=== PATIENT | male | born 2000 | race Caucasian/White ===

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

== ENCOUNTER 2018-01-19 14:11 | Outpatient (CLI) | payer BC | END 2018-01-19 14:12 | LOC: POD 14:11 | PROVIDERS: ATTEND Podiatrist | DX: M77.31 Calcaneal spur, right foot (principal); M77.32 Calcaneal spur, left foot | CPT/HCPCS: 99213 ==

== ENCOUNTER 2018-06-03 16:35 | Emergency (ER) | payer BC ==
--- NOTE | 2018-06-03 16:37 | ED Physician Documentation ---
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 Pt has pain in his lateral R foot as well as ankle. No other injury.) - ROS CONST: no problems EYES/ENT: none CVS/RESP: none GI/: none MS/SKIN/LYMPH: other (R ankle/foot injury) - PAST HX Past History: other (anxiety, bipolar d/o.) Allergies/Adverse Reactions: Allergies Allergy/AdvReac Type Severity Reaction Status Date / Time No Known Allergies Allergy Verified 06/03/18 16:47 Home Medications: Ambulatory Orders Medication Instructions Recorded Carbamazepine [Carbamazepine ER] 100 mg D 06/03/18 LORazepam [Ativan] 1 mg D 06/03/18 Lisdexamfetamine Dimesylate 50 mg D 06/03/18 [Vyvanse] - SOCIAL HX Smoking History: non-smoker - FAMILY HX Family History: No - VITAL SIGNS Vital Signs: Vital Signs Temp Pulse Resp BP Pulse Ox 140/70 10/30/17 15:39 - REVIEWED ASSESSMENTS Nursing Assessment Reviewed: Yes Vitals Reviewed: Yes Progress - Progress Progress: X-ray R foot: normal X-ray R ankle: normal Air Splint Crutches as needed Ibuprofen 200 mg. Take 3 every 8 hrs with food. General Adult Physical Exam - PHYSICAL EXAM GENERAL APPEARANCE: moderate distress NECK: normal inspection, supple RESPIRATORY: no resp distress, chest non-tender, breath sounds normal CVS: reg rate & rhythm, heart sounds normal BACK: normal inspection SKIN: warm/dry, normal color EXTREMITIES: other (R ankle tenderness and R foot tenderness laterally, min swelling) NEURO: oriented X3, motor nml, sensation nml Discharge Clincal Impression: Right ankle sprain Qualifiers: Encounter type: initial encounter Involved ligament of ankle: unspecified ligament Qualified Code(s): S93.401A - Sprain of unspecified ligament of right ankle, initial encounter Referrals: Bj Garcia MD [Primary Care Provider] - Condition: Good Disposition: 01 HOME, SELF-CARE Decision to Admit: NO Decision Time: 17:42
[2018-06-03 16:47] VITALS: BP 117/67
--- NOTE | 2018-06-03 17:37 | Diagnostic Imaging Report ---
LORI ARBOLEDA [facility] [address] [facility] [address] [address] Report Submission Date: Jun 03, 2018 5:35:50 PM CDT Patient Study Name: SHO JOHNSON Date: Jun 03, 2018 4:55:23 PM CDT Modality Type: DX Gender: M Description: LOWER EXTREMITY : 98 Institution: [facility] Physician: LORI ARBOLEDA Right ankle, 3 views History: Injury, pain Findings: The osseous, joints and soft tissue structures are normal. Impression: Normal. Electronically signed on Jun 03, 2018 5:35:50 PM CDT by: Jeyson LANE
--- NOTE | 2018-06-03 17:38 | Diagnostic Imaging Report ---
LORI ARBOLEDA [facility] [address] [facility] [address] [address] Report Submission Date: Jun 03, 2018 5:36:28 PM CDT Patient Study Name: SHO JOHNSON Date: Jun 03, 2018 4:58:36 PM CDT Modality Type: DX Gender: M Description: LOWER EXTREMITY : 98 Institution: [facility] Physician: LORI ARBOLEDA Right foot, 3 views History: Injury, pain Findings: The osseous, joint and soft tissue structures are normal. Impression: Normal. Electronically signed on Jun 03, 2018 5:36:28 PM CDT by: Jeyson LANE
== END 2018-06-03 17:46 | disposition home or self-care (01) ==
LOC: ED 16:35
DX: S93.401A Sprain of unspecified ligament of right ankle, initial encounter (principal); X58.XXXA Exposure to other specified factors, initial encounter; Y92.9 Unspecified place or not applicable; Y93.9 Activity, unspecified; Y99.9 Unspecified external cause status
CPT/HCPCS: 73610; 73630

== ENCOUNTER 2018-09-20 12:06 | Outpatient (CLI) | payer BC ==
[2018-09-20 13:43] LABS: eGFR (Non-African) > 60
[2018-09-20 23:11] LABS: T3-UPTAKE 34.6 % (25.4-41.2)
== END 2018-09-20 15:30 ==
LOC: LAB 12:06
PROVIDERS: ATTEND Family Medicine
DX: R63.4 Abnormal weight loss (principal)
CPT/HCPCS: 36415; 80053; 84436; 84479

== ENCOUNTER 2019-07-24 15:01 | Outpatient (CLI) | payer BC ==
[2019-07-24 15:23] LABS: BASOPHILS % 0.5 % (0.0-1.5); NEUTROPHILS # 5.5 # k/uL (1.4-7.7)
[2019-07-24 16:27] LABS: eGFR (Non-African) > 60
--- NOTE | 2019-07-26 13:53 | Diagnostic Imaging Report ---
GILDA NEAL [facility] [address] [facility] [address] Report Submission Date: Jul 24, 2019 3:33:14 PM CDT Patient Study Name: SHO JOHNSON Date: Jul 24, 2019 3:07:39 PM CDT Modality Type: DX Gender: M Description: ABD COMPLETE : 98 Institution: [facility] Physician: GILDA NEAL Examination: Obstruction series History: EXTREME WEIGHT LOSS Findings: 4 views obtained of the abdomen. No abnormal dilation of the large or small bowel. Air and stool throughout the large bowel. No suspicious calcification projecting over the renal fossa or the lower pelvic region. Osseous structures are appropriate for age. Impression: No bowel obstruction. No suspicious calcifications by plain film sensitivity. Electronically signed on Jul 24, 2019 3:33:14 PM CDT by: Mauricio LANE
== END 2019-07-24 15:03 ==
LOC: LAB 15:01
PROVIDERS: ATTEND Nurse Practitioner Family
DX: R53.83 Other fatigue (principal); R63.4 Abnormal weight loss
CPT/HCPCS: 36415; 74019; 80053; 84439; 84443; 84481; 85025; 85651; 86140